=== PATIENT | female | born 1995 | race Caucasian/White ===

== ENCOUNTER → 2017-05-08 14:44 | Outpatient (CLI) | payer OTHER, SELFPAY ==
--- NOTE | 2017-05-08 15:00 | US_ITS ---
STUDY: ULTRASOUND BREAST - RIGHT REASON FOR EXAM: Female, 21 years old. Pain in the right breast. History of prior prior biopsy and excisional breast biopsy of a left sided fibroadenoma. TECHNIQUE: Axial and longitudinal images of the RIGHT breast were performed with a high resolution ultrasound transducer. COMPARISON: None. FINDINGS: RIGHT Breast: In the upper outer quadrant of the right breast, there is a 7 mm x 8 mm x 3 mm well-defined hypoechoic solid nodule. This corresponds to the palpable abnormality. This most likely represents a small fibroadenoma. IMPRESSION: Subcentimeter well-defined hypoechoic solid nodule at the 12:00 to the breast at 3 cm from nipple corresponding to the palpable abnormality. This most likely presents a fibroadenoma. ASSESSMENT CATEGORY: BIRADS Category 2: Benign. A letter regarding these results will be sent to the patient by the facility within 30 days. Electronically Signed: Vaughn Parada MD at 8:06 EDT Tel [phone], Service support , STUDY: ULTRASOUND BREAST - LEFT REASON FOR EXAM: Female, 21 years old. Palpable lump left breast. History of prior resection of fibroadenoma in the left breast. TECHNIQUE: Axial and longitudinal images of the LEFT breast were performed with a high resolution ultrasound transducer. COMPARISON: None. FINDINGS: LEFT Breast: The entire left breast was examined by ultrasound. There are 6 well-defined hypoechoic solid nodules within the breast. The largest measures 1.7 cm x 1.5 cm x 0.5 cm. This is at the 9:00 position breast at 4 cm from nipple. This most likely represents a fibroadenoma. Clinical correlation is recommended. US/Breast Limited Unilateral IMPRESSION: Multiple well-defined hypoechoic solid nodules in the left breast as described. These likely represent fibroadenomas. Clinical correlation is recommended. ASSESSMENT CATEGORY: BIRADS Category 2: Benign. A letter regarding these results will be sent to the patient by the facility within 30 days. Electronically Signed: Vaughn Parada MD at 8:08 EDT Tel [phone], Service support ,
== END ==
PROVIDERS: Visit Provider Nurse Practitioner Women's Health
DX: N63.10 Unspecified lump in the right breast, unspecified quadrant (principal); N63.20 Unspecified lump in the left breast, unspecified quadrant; Z86.018 Personal history of other benign neoplasm; Z98.890 Other specified postprocedural states
CPT/HCPCS: 76642

== ENCOUNTER → 2018-02-18 13:15 | Outpatient (CLI) | payer OTHER, SELFPAY ==
[2018-01-18 10:21] VITALS: BMI 18.9
[2018-02-18 14:39] LABS: hCG Titer Quant., Serum < 1 mIU/mL (<9 non-preg)
== END ==
PROVIDERS: Family Provider Internal Medicine; PCP Internal Medicine; Visit Provider Nurse Practitioner Women's Health
DX: N91.2 Amenorrhea, unspecified (principal)
CPT/HCPCS: 36415; 84702

== ENCOUNTER → 2018-11-12 15:59 | Outpatient (CLI) | payer OTHER, SELFPAY ==
[2018-11-02 15:22] VITALS: BMI 18.9
[2018-11-12 17:11] LABS: Estradiol 63.6 pg/mL; Follicle Stimulating Hormone 6.2 mIU/mL; Prolactin 14.5 ng/mL; Thyroid Stim Hormone (TSH) 1.11 uIU/mL (0.358-3.74)
== END ==
PROVIDERS: Family Provider Internal Medicine; PCP Internal Medicine; Referring Provider Nurse Practitioner Women's Health; Visit Provider Nurse Practitioner Women's Health
DX: N92.6 Irregular menstruation, unspecified (principal)
CPT/HCPCS: 36415; 82670; 83001; 84146; 84443

== ENCOUNTER → 2018-11-25 13:59 | Outpatient (CLI) | payer OTHER, SELFPAY ==
[2018-11-22 08:43] VITALS: BMI 18.9
--- NOTE | 2018-11-25 14:01 | US_ITS ---
STUDY: ULTRASOUND BREAST - LEFT REASON FOR EXAM: Female, 23 years old. Left breast mastitis. TECHNIQUE: Axial and longitudinal images of the LEFT breast were performed with a high resolution ultrasound transducer. COMPARISON: Comparison is made with prior mammogram done earlier in the day as well as prior ultrasound of the left breast dated May 08, 2017. FINDINGS: LEFT Breast: The entire left breast was examined by ultrasound. At this time, there are 3 well-defined hypoechoic solid nodules within the breast. The largest measures 1.6 cm x 1.4 cm x 0.5 cm. This is at the 3:00 position of the breast at 4 cm from the nipple. This is essentially unchanged. A second nodule is seen which is hypoechoic and well-defined at the 1:00 position breast measuring 1.4 cm x 1.4 cm x 0.8 cm. A third well-defined hypoechoic solid nodule is seen at the 11:00 position of breast measuring 1.5 cm x 1.2 cm x 0.9 cm. These most likely represent fibroadenomas. These are essentially unchanged. US/Breast Complete Unilateral IMPRESSION: 3 well-defined hypoechoic solid nodule suggestive of fibroadenomas. ASSESSMENT CATEGORY: BIRADS Category 2: Benign. A letter regarding these results will be sent to the patient by the facility within 30 days. Electronically Signed: Vaughn Parada, at 8:10 EDT , Service support ,
--- NOTE | 2018-11-25 14:02 | BI_ITS ---
MAMMOGRAPHY - BILATERAL DIAGNOSTIC REASON FOR EXAM: Female, 23 years old. History of left mastitis treated with antibiotics. PERTINENT HISTORY: Mother with breast cancer. Grandmother with breast cancer. TECHNIQUE: Digital bilateral breast yogesh (3D mammographic acquisition) in the CC and MLO projections. 2-D mediolateral oblique (MLO) and craniocaudad (CC) views of both breasts were obtained. CAD: Full Field Digital Mammography with Computer Added Detection was performed. COMPARISON: None. Baseline examination. FINDINGS: Breast Composition: The breasts are extremely dense, which lowers the sensitivity of mammography. A tissue clip marker is seen in a 1.1 cm nodule in the retroareolar region of the left breast. No other significant abnormalities are identified. BI/DIAG MAMM W/CAD, BILAT IMPRESSION: Negative diagnostic mammogram. With the patient's history of a left mastitis, correlation with ultrasound is recommended. ASSESSMENT CATEGORY: BIRADS Category 0: Incomplete. Need additional imaging evaluation. A letter regarding these results will be sent to the patient by the facility within 30 days. Approximately 10% of breast cancers are not detected by mammography. A normal mammogram should not delay biopsy of a clinically suspicious abnormality. Electronically Signed: Vaughn Parada, at 15:22 EDT , Service support ,
== END ==
PROVIDERS: Family Provider Internal Medicine; PCP Internal Medicine; Referring Provider Obstetrics & Gynecology; Visit Provider Obstetrics & Gynecology
DX: N63.21 Unspecified lump in the left breast, upper outer quadrant (principal); N63.22 Unspecified lump in the left breast, upper inner quadrant; Z87.898 Personal history of other specified conditions; Z80.3 Family history of malignant neoplasm of breast
CPT/HCPCS: 76641; 77062; 77066; G0279

== ENCOUNTER → 2018-12-06 10:41 | Outpatient (CLI) | payer OTHER, SELFPAY ==
[2018-11-22 08:43] VITALS: BMI 18.9
[2018-12-06 11:30] LABS: Progesterone Level 4.47 ng/mL (See Comment)
== END ==
PROVIDERS: Nurse Practitioner Women's Health; Family Provider Internal Medicine; PCP Internal Medicine; Referring Provider Obstetrics & Gynecology; Visit Provider Obstetrics & Gynecology
DX: N97.0 Female infertility associated with anovulation (principal)
CPT/HCPCS: 36415; 84144

== ENCOUNTER → 2019-04-25 15:53 | Outpatient (CLI) | payer OTHER, SELFPAY ==
[2018-11-22 08:43] VITALS: BMI 18.9
[2019-04-25 16:50] LABS: hCG Titer Quant., Serum < 1 mIU/mL (1-3)
== END ==
PROVIDERS: PCP Internal Medicine; Referring Provider Obstetrics & Gynecology; Visit Provider Obstetrics & Gynecology
DX: N91.5 Oligomenorrhea, unspecified (principal)
CPT/HCPCS: 36415; 84702

== ENCOUNTER → 2019-09-25 12:03 | Outpatient (CLI) | payer OTHER, SELFPAY ==
[2019-08-29 11:28] VITALS: BMI 18.9
== END ==
PROVIDERS: PCP Internal Medicine; Visit Provider Obstetrics & Gynecology
DX: N91.5 Oligomenorrhea, unspecified (principal)
CPT/HCPCS: 84144

== ENCOUNTER → 2019-09-29 15:22 | Outpatient (CLI) | payer OTHER, SELFPAY ==
[2019-08-29 11:28] VITALS: BMI 18.9
--- NOTE | 2019-09-29 15:23 | US_ITS ---
STUDY: ULTRASOUND OF THE FEMALE PELVIS - COMPLETE REASON FOR EXAM: Female, 24 years old. Right lower quadrant pain for 10 days. Patient receiving fertility treatment. LMP: 09/03/2019. TECHNIQUE: Transabdominal and Transvaginal TECHNICAL QUALITY: Adequate. COMPARISON: None. FINDINGS: The uterus is anteverted and is in a midline position. The uterus measures 8.9 x 4.6 x 2.5 cm. Normal uterine cervix. The endometrium measures 6 mm in thickness, and is hyperechoic. There is no demonstrated endometrial mass. There is no demonstrated myometrial mass. I.U.D. - The patient does not have an I.U.D. The right ovary is visualized. The right ovary measures 10.2 x 5.2 x 4.5 cm. There is a 5.7 x 5.4 x 4.0 cm cyst as well as a 5.3 x 4.8 x 3.7 cm cyst. Both contain thin internal septations. There is no visualized right adnexal mass or complex lesion. There is normal arterial and normal venous vascularity. The left ovary is visualized. The left ovary measures 4.4 x 2.8 x 2.7 cm cm. There is a 1.9 x 1.6 x 1.4 cm simple cyst. There is no visualized left adnexal mass or complex lesion. There is normal arterial and normal venous vascularity. There is a moderate amount of fluid in the cul-de-sac. The pre void volume of the bladder was 547 ml. The urinary bladder appears grossly normal. Polycystic ovary disease: No. US/Pelvic (Non ) IMPRESSION: 1. Normal appearing uterus. 2. Large septated cyst within the right ovary. 3. Small simple cyst of the left ovary. 4. Moderate free fluid within the pelvis. Question recent ruptured ovarian cyst. Electronically Signed: Hunter Topete DO at 17:02 EDT Tel [phone], Service support ,
--- NOTE | 2019-09-29 15:23 | US_ITS ---
STUDY: ULTRASOUND OF THE FEMALE PELVIS - COMPLETE REASON FOR EXAM: Female, 24 years old. Right lower quadrant pain for 10 days. Patient receiving fertility treatment. LMP: 09/03/2019. TECHNIQUE: Transabdominal and Transvaginal TECHNICAL QUALITY: Adequate. COMPARISON: None. FINDINGS: The uterus is anteverted and is in a midline position. The uterus measures 8.9 x 4.6 x 2.5 cm. Normal uterine cervix. The endometrium measures 6 mm in thickness, and is hyperechoic. There is no demonstrated endometrial mass. There is no demonstrated myometrial mass. I.U.D. - The patient does not have an I.U.D. The right ovary is visualized. The right ovary measures 10.2 x 5.2 x 4.5 cm. There is a 5.7 x 5.4 x 4.0 cm cyst as well as a 5.3 x 4.8 x 3.7 cm cyst. Both contain thin internal septations. There is no visualized right adnexal mass or complex lesion. There is normal arterial and normal venous vascularity. The left ovary is visualized. The left ovary measures 4.4 x 2.8 x 2.7 cm cm. There is a 1.9 x 1.6 x 1.4 cm simple cyst. There is no visualized left adnexal mass or complex lesion. There is normal arterial and normal venous vascularity. There is a moderate amount of fluid in the cul-de-sac. The pre void volume of the bladder was 547 ml. The urinary bladder appears grossly normal. Polycystic ovary disease: No. US/Transvaginal Non- IMPRESSION: 1. Normal appearing uterus. 2. Large septated cyst within the right ovary. 3. Small simple cyst of the left ovary. 4. Moderate free fluid within the pelvis. Question recent ruptured ovarian cyst. Electronically Signed: Hunter Topete DO at 17:02 EDT Tel [phone], Service support ,
== END ==
PROVIDERS: PCP Internal Medicine; Referring Provider Obstetrics & Gynecology; Visit Provider Obstetrics & Gynecology
DX: R10.2 Pelvic and perineal pain (principal); N83.291 Other ovarian cyst, right side; N83.292 Other ovarian cyst, left side
CPT/HCPCS: 76830; 76856; 93976

== ENCOUNTER → 2019-11-14 | Outpatient (CLI) | payer BC, SELFPAY ==
[2019-11-14 10:33] VITALS: BMI 18.9
[2019-11-18 12:56] LABS: HPV Reflexed? NOT INDICATED
== END | disposition home or self-care (01) ==
PROVIDERS: PCP Internal Medicine; Referring Provider Obstetrics & Gynecology; Visit Provider Obstetrics & Gynecology
DX: Z12.4 Encounter for screening for malignant neoplasm of cervix (principal)
CPT/HCPCS: 88175; G0145

== ENCOUNTER 2021-09-18 15:40 | Outpatient (RCR) | payer BC, SELFPAY ==
--- NOTE | 2021-09-18 17:17 | HP.OTEVAL_ITS ---
Patient's Visit Information NAEL ZIEGLER is a 25 year old F, referred to Occupational Therapy by Dr. Minesh Ferraro MD, with a diagnosis of mallet finger left RF. Date of Evaluation: 09/18/21 Occupational Therapist: Mita Kelley, OTR/L, CHT - Subjective This 25 year old female was seen for OT eval with dx of left RF mallet finger- pt states DOI was 09/02/21 and she put her finger in splint right away - pt did see Dr. Ferraro 09/16/21 and arrives with order for custom mallet finger splint- pt denies pain but states her ring finger does get painful at night because she can not bend her middle knuckle or PIP. - ROM ROM Comments: no measurements taken this day due to healing structures. finger appears to be healing well no swelling noted - Strength Strength Comments: will test later date - Sensation Sensation Comments: denies - Goals Goal:100% adherence to protocol: Yes Comment: mallet finger orthosis 6 weeks Goal:ROM equal to unaffected hand: Yes Comment: at week 10 Goal:Gear Grinding Machine Operator/Pinch strength at least 75% of unaffected hand: Yes Comment: at week 12 Other Goal: pt will demo understanding of orthosis use and precautions by end of 1st session - Rehabilitation General Assessment: pt arrives after left RF injury in need of custom orthosis for mallet finger- therapist karyn. custom orthosis ed, pt on donning and doffing orthosis and skin care precautions- pt demo understanding and agree to return to clinic for orthosis adj. as needed unless otherwise specified by you. Rehabilitation Potential: Excellent - Anticipated Interventions Orthoses, Home Program - Visit Plan TEXT: Thank you for the opportunity to evaluate your patient. For Medicare and Medicare HMO plans, please review the plan of care and approve it. It will need to be FAXED BACK to us at [phone] for Medicare purposes. Please let me know if there are questions or concerns regarding this plan of care. Physician Signature: Date:
--- NOTE | 2021-09-18 17:29 | HP.OTEVAL ---
Patient's Visit Information NAEL ZIEGLER is a 25 year old F, referred to Occupational Therapy by Dr. Minesh Ferraro MD, with a diagnosis of mallet finger left RF. Date of Evaluation: 09/18/21 Occupational Therapist: Mita Kelley, VICKIR/Sarah, CHT - Subjective This 25 year old female was seen for OT eval with dx of left RF mallet finger- pt states DOI was 09/02/21 and she put her finger in splint right away - pt did see Dr. Ferraro 09/16/21 and arrives with order for custom mallet finger splint- pt denies pain but states her ring finger does get painful at night because she can not bend her middle knuckle or PIP. - ROM ROM Comments: no measurements taken this day due to healing structures. finger appears to be healing well no swelling noted - Strength Strength Comments: will test later date - Sensation Sensation Comments: denies - Quick DASH-Disab of Arm,Shoulder& Hand Quick DASH Score: 20.4525 - Goals Goal:100% adherence to protocol: Yes Comment: mallet finger orthosis 6 weeks Goal:ROM equal to unaffected hand: Yes Comment: at week 10 Goal:Lining Folder/Pinch strength at least 75% of unaffected hand: Yes Comment: at week 12 Other Goal: pt will demo understanding of orthosis use and precautions by end of 1st session - Rehabilitation General Assessment: pt arrives after left RF injury in need of custom orthosis for mallet finger- therapist karyn. custom orthosis ed, pt on donning and doffing orthosis and skin care precautions- pt demo understanding and agree to return to clinic for orthosis adj. as needed unless otherwise specified by you. Rehabilitation Potential: Excellent - Anticipated Interventions Orthoses, Home Program - Visit Plan TEXT: Thank you for the opportunity to evaluate your patient. For Medicare and Medicare HMO plans, please review the plan of care and approve it. It will need to be FAXED BACK to us at [phone] for Medicare purposes. Please let me know if there are questions or concerns regarding this plan of care. Physician Signature: Date:
--- NOTE | 2022-02-05 11:48 | HP.OT.NRP ---
NAEL ZIEGLER was seen in my office for initial evaluation on 09/18/21. The following Plan of Care was established for this patient: Anticipated Interventions: Orthoses, Home Program This patient was last seen in our office 09/18/21. Pertinent comments regarding their Occupational therapy will appear below: Pt was seen for OT eval only. No further apts scheduled and due to time lapse in services pt d.c at this time. At this point I will be discontinuing this patient from occupational therapy. I would be happy to see this patient again in the future if found appropriate by the physician. Thank you! Mita Kelley, OTR/L, CHT
== END 2021-09-18 19:00 | disposition home or self-care (01) ==
LOC: OT 15:40
PROVIDERS: PCP Internal Medicine; Referring Provider Orthopaedic Surgery; Visit Provider Orthopaedic Surgery
DX: M20.012 Mallet finger of left finger(s) (principal)
CPT/HCPCS: 97165; 97760

== ENCOUNTER → 2021-11-26 | Outpatient (CLI) | payer BC, SELFPAY ==
[2021-11-26 11:37] LABS: Estradiol 36.7 pg/mL
[2021-12-08 21:07] LABS: Testosterone, Free 0.85 ng/dL (0.10-0.85); Testosterone, Total 17 ng/dL (13-71)
[2021-12-09 16:19] LABS: Testosterone, % Free 4.98 % (0.50-2.80)
== END | disposition home or self-care (01) ==
LOC: PAVLAB 10:29
PROVIDERS: PCP Internal Medicine; Referring Provider Obstetrics & Gynecology; Visit Provider Obstetrics & Gynecology
DX: N91.5 Oligomenorrhea, unspecified (principal)
CPT/HCPCS: 36415; 82670; 84402; 84403

== ENCOUNTER → 2021-12-13 | Outpatient (CLI) | payer BC, SELFPAY ==
[2021-12-13 13:13] LABS: Progesterone Level 10.67 ng/mL (See Comment)
== END | disposition home or self-care (01) ==
LOC: LAB 11:34
PROVIDERS: PCP Internal Medicine; Visit Provider Obstetrics & Gynecology
DX: Z31.69 Encounter for other general counseling and advice on procreation (principal); N91.4 Secondary oligomenorrhea
CPT/HCPCS: 36415; 84144